=== PATIENT | male | born 1975 | race Two or more races ===

== ENCOUNTER 2024-06-21 19:24 | Emergency (ER) | payer OTHER ==
[~2024-06-21] VITALS: Ht 165.1 cm; Wt 74.8 kg
[2024-06-21] MEDS ORDERED: DEXT7.5T5 PO (20:41)
[2024-06-21] MEDS ORDERED: SERT25TA PO (20:41)
[2024-06-21] MEDS ORDERED: CYCL10TA9 PO (21:12)
[2024-06-21] MEDS ORDERED: HYDR-4209 PO (21:12)
[2024-06-21] MEDS ORDERED: IBUP-1490 PO (21:12)
[2024-06-21] MEDS ORDERED: IBUPROFEN 600 MG TABLET ONE (21:17)
[2024-06-21] MEDS: IBUPROFEN 600 MG TABLET PO ONE (21:19)
[2024-06-21 21:51] VITALS: BP 138/95; TEMP 97.8; O2SAT 98
== END 2024-06-21 21:51 | disposition home or self-care (01) ==
LOC: ER 19:24
DX: S16.1XXA Strain of muscle, fascia and tendon at neck level, initial encounter (principal); S39.012A Strain of muscle, fascia and tendon of lower back, initial encounter; V43.52XA Car driver injured in collision with other type car in traffic accident, initial encounter; Y93.89 Activity, other specified; Y92.89 Other specified places as the place of occurrence of the external cause; Y99.8 Other external cause status
CPT/HCPCS: A4606; A4663